=== PATIENT | male | born 1955 | race Caucasian/White ===

== ENCOUNTER 2018-03-05 08:07 | Outpatient (CLI) | payer BC ==
--- NOTE | 2018-03-05 09:05 | ULT ---
ULTRASOUND ABDOMEN COMPLETE: HISTORY: 62-year-old male with generalized abdominal pain. FINDINGS: The gallbladder has normal wall thickness and has no evidence of gallstones or sludge. The hepatic ec hogenicity is normal. The kidneys have normal echogenicity, and there is no hydronephrosis. There is no splenomegaly. There is no abdominal aortic aneurysm. No free fluid is identified. The inferior roc a cava is visualized. Pancreas is obscured by shadowing from bowel gas. There is no biliary dilation. Common duct caliber is 5 mm. IMPRESSION: 1. No pathology identified. 2. Pancreas not visualized. jn [] POS: OFF
== END 2018-03-05 08:08 | disposition home or self-care (01) ==
LOC: SCSULT 08:07
PROVIDERS: ATTEND Specialist
DX: R10.9 Unspecified abdominal pain (principal); R19.05 Periumbilic swelling, mass or lump
CPT/HCPCS: 76700

== ENCOUNTER 2019-04-12 11:11 | Outpatient (CLI) | payer BC ==
--- NOTE | 2019-04-12 12:24 | RAD ---
FOUR VIEWS CERVICAL SPINE: 04/12/19 HISTORY: Cervical root disorder. Left sided radiculopathy. COMPARISON: None. FINDINGS: On the open mouth view, lateral masses of C1 and C2 articulate appropriately. Intact odontoid process . On the AP projection, calcifications in the left and right neck suggest atherosclerosis of the caroti d artery is noted. There is multilevel facet hypertrophy. No malalignment. Limited evaluation of the cervicothoracic junction on the swimmer's view. No significant loss of disc space height. Osteophyt e formation at C5-C6 and possibly at C6-C7 is noted. IMPRESSION: No significant loss of disc space height. Limited evaluation of the neural foramina. If continuation of symptomatology, MRI may be beneficial. POS: REUBEN
== END 2019-04-12 11:12 | disposition home or self-care (01) ==
LOC: BICRAD 11:11
PROVIDERS: ATTEND Specialist
DX: M54.12 Radiculopathy, cervical region (principal); G54.2 Cervical root disorders, not elsewhere classified
CPT/HCPCS: 72040

== ENCOUNTER 2020-12-19 11:44 | Emergency (ER) | payer BC ==
[2020-12-19 13:30] LABS: #Basophils 0.1 thou/uL (0.0-0.2); #Eosinphils 0.2 thou/uL (0.0-0.7); #Lymphocytes 3.6 thou/uL (1.20-3.40); #Monocytes 0.9 thou/uL (0.11-0.59); #Neutrophils 11.2 thou/uL (1.40-6.50); %Basophils 0.5 % (0.0-1.0); %Eosinophils 1.4 % (0.0-10.0); %Lymphocytes 22.5 % (21.0-51.0); %Monocytes 5.7 % (0.0-10.0); %Neutrophils 69.9 % (42.0-75.0); Mean Corpuscular HGB CONC 33.4 g/dL (32.0-36.0); Mean Corpuscular Hemoglobin 28.3 pg (27.0-31.0); Mean Corpuscular Volume 84.7 fL (78.0-98.0); Mean Platelet Volume 7.7 fL (7.4-10.4); Platelet Count 272 thou/uL (130-400); RBC Distribution Width 12.6 % (11.5-14.5)
--- NOTE | 2020-12-19 13:33 | RAD ---
PORTABLE CHEST 1 VIEW: Date: 12/19/2020 Time: 1327 hours HISTORY: Cough. FINDINGS: The heart size is normal. The lungs are well expanded without lobar consolidation, pneumothoraces, or pleural effusions. IMPRESSION: No acute process. POS: OFF
[2020-12-19 13:49] LABS: ALT (SGPT) 34 U/L (8-55); AST (SGOT) 20 U/L (5-34); Albumin 4.2 g/dL (3.4-4.8); Alkaline Phosphatase 80 U/L (40-110); Anion Gap 11 mmol/L (10-20); BUN (Urea Nitrogen) 19 mg/dL (8.4-25.7); Bilirubin, Total 0.4 mg/dL (0.2-1.2); Calc. Creatinine Clearance 0 mL/min (70-130); Calcium 8.7 mg/dL (7.8-10.44); Carbon Dioxide 28 mmol/L (23-31); Chloride 101 mmol/L (98-107); Globulin 2.9 g/dL (2.4-3.5); Glucose 292 mg/dL (80-115); Protein, Total 7.1 g/dL (5.8-8.1); Sodium 136 mmol/L (136-145)
[2020-12-19 19:26] LABS: SARS-CoV-2 PCR by NAA DETECTED (NotDetected)
--- NOTE | 2020-12-22 20:42 | EKG ---
Test Reason : Blood Pressure : / mmHG Vent. Rate : 091 BPM Atrial Rate : 091 BPM P-R Int : 184 ms QRS Dur : 086 ms QT Int : 368 ms P-R-T Axes : 053 041 095 degrees QTc Int : 452 ms Normal sinus rhythm Cannot rule out Anterior infarct , age undetermined Abnormal ECG Confirmed by DULCE MATA, SHAUNA ([id number]), manager editorial YOKASTA JOSEPH ([id number]) on 12/22/2020 8:41:56 PM Referred By: Confirmed By:SHAUNA CARDONA MD
== END 2020-12-19 14:14 | disposition home or self-care (01) ==
LOC: ERS 11:44
DX: U07.1 COVID-19 (principal); D72.829 Elevated white blood cell count, unspecified; E10.65 Type 1 diabetes mellitus with hyperglycemia; I10 Essential (primary) hypertension; E78.5 Hyperlipidemia, unspecified; F17.210 Nicotine dependence, cigarettes, uncomplicated
CPT/HCPCS: 36416; 71045; 80053; 84484; 85025; 87635; 93005; U0003; U0005